=== PATIENT | female | born 1995 | race Caucasian/White ===

== ENCOUNTER 2025-01-03 00:55 | Emergency (ER) | payer MEDICAID, SELFPAY ==
[2025-01-03 00:57] VITALS: PULSE 105; RESP 18; O2SAT 98; BMI 30.2
--- NOTE | 2025-01-03 00:57 | PD.EDPSYCH ---
ED Psych RME/HPI General Chief Complaint: Psychiatric Symptoms Stated Complaint: MENTAL EVALUATION Time Seen by Provider: 01/03/25 01:15 Arrival date/time: 01/03/25 00:55 RME / HPI RME / HPI Narrative: DR. 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 Admits to alcohol consumption but denies drug ingestion. Reports grandfather 1 year ago today and is not coping well. Related Data Home Medications ?Medication ?Instructions ?Recorded ?Confirmed ibuprofen 200 mg tablet 1,000 mg PO QID PRN Pain 07/22/18 07/22/18 ondansetron HCl 8 mg tablet 8 mg PO TID PRN Nausea 07/22/18 07/22/18 (Zofran) Allergies Allergy/AdvReac Type Severity Reaction Status Date / Time No Known Allergies Allergy Verified 07/23/18 11:56 Review of Systems Review of Systems Systems Reviewed: All systems reviewed, normal except as documented Past Medical History Past Medical History NEUROLOGIC: Positive Migraine CARDIAC: Positive Hypertension (DURING PREGNACY AND OCCASSIONALLY. NO MEDS) RESPIRATORY: Positive Smoking and Tobacco Use GASTROINTESTINAL: Positive Gastrointestinal Disorders, Gall Bladder Disease (For this procedure) and Obesity REPRODUCTIVE: Positive Previous Pregnancies () MUSCULOSKELETAL: Positive Fibromyalgia (MOTHER) and Fractures (RIGHT WRIST) PSYCHO/SOCIAL: Positive Depression (XANAX IN THE PAST), Anxiety and Post Traumatic Stress Disorder Family History FAMILY HISTORY: Positive Family Psychiatric Problems (MOTHER) and Family Gastrointestinal Problems (MOTHER HAS IBS) Social History SMOKING STATUS: Current every day smoker SUBSTANCE USE: marijuana ED Exam Narrative Physical exam: Generally patient is alert in no obvious distress, extremities show multiple superficial abrasions and hesitation alberts to the right distal leg just above the ankle. No suturable wound., Heart regular rate and rhythm, lungs clear to auscultation equal bilaterally, abdomen soft bowel sounds present also nontender, skin is warm pale and dry, neurologic exam [place] Coma Scale is 15 without focal motor deficit and without ataxia Course Quality Measures none Orders Category Date Time Status Acetaminophen Stat Lab 01/03/25 01:24 Completed Alcohol, Blood Medical Stat Lab 01/03/25 01:24 Completed Beta HCG,Quantitative Stat Lab 01/03/25 01:24 Completed CBC Stat Lab 01/03/25 01:24 Completed CMP [Comprehensive Metabolic Panel] Stat Lab 01/03/25 01:24 Completed Drug Screen,Urine Stat Lab 01/03/25 01:16 Ordered Salicylate Stat Lab 01/03/25 01:24 Completed Potassium Chloride [K-Dur] Med 01/03/25 02:03 Once 60 meq PO X1 ONE Vital Signs Vital signs: Vital Signs Temperature 98.4 F 01/03/25 01:13 Pulse Rate 112 H 01/03/25 01:13 Respiratory Rate 17 01/03/25 01:13 Blood Pressure 134/78 H 01/03/25 01:13 Pulse Oximetry (%) 99 01/03/25 01:13 Psych MDM Narrative MDM Narrative:: Scribe Attestation: I, Becka Hess, am scribing for and in the presence of Dr. Becerra. Provider Notation: Although this document has been carefully reviewed, there may still be some phonetic and other typographical errors. These errors are purely grammatical due to imperfections in the software program and should not be construed in any way to compromise the substance of the patient's medical care during this visit. Patient's last tetanus shot is less than 5 years ago. I interpreted all labs. There was no significant abnormality. However the patient did have a slight low potassium at 3.2. Patient received potassium chloride 60 mill equivalents p.o. She is currently on a 5150 written by the police department. instructional media services technician consult will be obtained in the morning. Case to be signed out to Dr. Carlos. Patient data External records reviewed:: [facility] previous records (Reviewed prior ED records from 05/07/23. Patient was seen for Influenza B.) Clinical information provided by:: patient, EMS and law enforcement Social determinants that could affect healthcare access:: alcohol use (& Marijuana) Patient has the following chronic illnesses:: Migraine, Hypertension, Smoking and Tobacco Use, Gall Bladder Disease, Obesity, Fibromyalgia, Depression, Anxiety, Post Traumatic Stress Disorder How is presenting disease/condition affected by chronic disease/condition?: exacerbated by Evaluation data The following diagnostics were reviewed and interpreted by me:: lab results Lab and/or radiology exams considered but not ordered:: None Interpretation Summary: See MDM above Medications / Prescriptions Medications or Prescriptions considered but not ordered:: None Medication administrations:: Medication Administration History Potassium Chloride (Potassium Chloride 20 Meq Tabcr) 60 meq PO X1 ONE Stop: 01/03/25 02:04 See above if any Consultations Consultation(s) initiated? (list below): No Diagnosis Psych Differential Diagnosis: acute psychosis, suicidal ideation, bipolar disorder, depression, drug-induced psychotic disorder and acute anxiety Most likely diagnosis given after review of the tests above:: None Admission Indicated Admission indicated?: not indicated Explain why admission is indicated or not indicated:: Pending licensed master social worker consult in the morning Admission Request Was there a request for admission?: No Disposition Plan Disposition Plan: other (specify) (Signed out to oncoming ED physician at 6 AM.) Discharge Plan Prescriptions/Referrals Prescriptions/Med Rec: No Action ondansetron HCl [Zofran] 8 mg Tablet 8 mg PO TID PRN (Reason: Nausea) ibuprofen 200 mg Tablet 1,000 mg PO QID PRN (Reason: Pain) Problem List Clinical Impression: Suicidal ideation, Abrasion, Hypokalemia Patient/Caregiver Discharge Instructions Print Language: Central African
[2025-01-03 01:13] VITALS: BP 134/78; PULSE 112; RESP 17; TEMP 36.9; O2SAT 99
[2025-01-03 01:34] LABS: Basophils # (Auto) 0.1 Thou/mm3 (0.0-0.2); Basophils % (Auto) 1 % (0-2.5); Eosinophils # (Auto) 0.1 Thou/mm3 (0.0-0.5); Eosinophils % (Auto) 2 % (0-10); Hematocrit 35.9 % (36.0-46.0); Hemoglobin 12.3 g/dL (12.0-16.0); Immature Granulocytes Auto 0.02 Thou/mm3 (0.00-0.00); Lymphocytes # (Auto) 2.9 Thou/mm3 (1.0-4.8); Lymphocytes % (Auto) 37 % (10-50); Mean Corpuscular HGB Conc 34.3 g/dl (31.0-37.0); Mean Corpuscular Hemoglobin 31.1 pg (25.0-35.0); Mean Corpuscular Volume 91 fL (80-100); Monocytes # (Auto) 0.5 Thou/mm3 (0.0-0.8); Monocytes % (Auto) 6 % (0-12); Neutrophils # (Auto) 4.2 Thou/mm3 (1.8-7.7); Neutrophils % (Auto) 54 % (37-80); Nucleated Red Blood Cell # 0.00 Thou/mm3 (0.00-0.00); Nucleated Red Blood Cell % 0 /100 WBC (0); Platelet Count 230 Thou/mm3 (140-440); RDW Standard Deviation 39.7 fL (36.4-46.3); Red Blood Count 3.96 Miln/mm3 (4.00-5.20); White Blood Count 7.8 Thou/mm3 (3.6-11.0)
[2025-01-03 01:59] LABS: Acetaminophen < 2.0 mcg/mL (10.0-20.0); Alanine Aminotransferase 14 U/L (10-49); Albumin, Serum 4.9 gm/dL (3.5-5.0); Albumin/Globulin Ratio 2.6 (1.2-2.2); Alcohol, Blood Medical 51.7 mg/dL (0-10.0); Alkaline Phosphatase 65 U/L (46-116); Anion Gap 12 (7-16); Aspartate Amino Transferase 16 U/L (0-34); BUN/Creatinine Ratio 10 Ratio (12-20); Beta HCG,Quantitative 1 mIU/mL (<5.0); Bilirubin,Total 0.3 mg/dL (0.3-1.2); Blood Urea Nitrogen 8 mg/dL (9-23); Calcium 9.4 mg/dL (8.3-10.6); Calcium (Corrected) 9.4 mg/dL (8.5-10.1); Carbon Dioxide 23.1 mMol/L (20.0-31.0); Chloride 111 mMol/L (98-107); Creatinine (Component) 0.8 mg/dL (0.6-1.3); Estimated Creatinine Clearance 93.7 mL/min (>60); Globulin 1.9 gm/dL (2.3-3.5); Glucose 89 mg/dL (74-106); Osmolality,Calculated 287 (275-295); Potassium 3.2 mMol/L (3.4-5.1); Salicylate < 3.0 mg/dL; Sodium 146 mMol/L (136-145); Total Protein 6.8 gm/dL (5.7-8.2); eGFR > 60 See Note
[2025-01-03 03:41] LABS: Amphetamine/Methamp Scrn,U Negative (Negative); Barbiturate Screen,Urine Negative (Negative); Benzodiazepines Screen,Urine Negative (Negative); Benzoylecgonine Screen, Ur Negative (Negative); Fentanyl Screen,Urine Negative (Negative); Opiate Screen,Urine Negative (Negative); THC Screen,Urine Negative (Negative)
[2025-01-03 05:40] VITALS: BP 112/68; PULSE 84; RESP 18; TEMP 36.7; O2SAT 99
--- NOTE | 2025-01-03 06:41 | PD.EDADDENDU ---
Emergency Room Addendum Addendum Narrative: 0600: Care assumed from Dr. Claudio, the previous shift emergency physician. Past medical, surgical, social and family history reviewed. Vitals and home medications reviewed. I will assume the care of the patient at this time, pending mental health evaluation. Patient is medically cleared. Please refer to the emergency department record for history and examination from initial visit.? Physical exam by me shows patient under no acute distress at this time. 0835: Mental health evaluated her and patient denied any HI, SI, A/h, V/h or past suicide attempts. Patient was placed on a 5150 hold for danger to self by [place] [employer] earlier at arrival. But per mental health, patient does not meet criteria for 5150 hold and they rescinded the 5150 hold. Patient will be discharged to her stepfather's care and mother, safety plan in place. Patient was discharged with an abrasion, alcohol use, and self-harming behavior.
[2025-01-03 08:08] VITALS: BP 114/72; PULSE 77; RESP 16; TEMP 37.4; O2SAT 97
--- NOTE | 2025-01-03 08:49 | PC.CC ---
Electroencephalographic Technician, Stacie notified by Dr. Gutierrez that patient was medically clear for MHE. CC reviewed EMR, patient was placed on a 5150 hold for danger to self by [place] [employer] Officer, Dedra Cedeño, who reported that patient contacted for assistance due to self injuring her leg. CC met with patient [id number] to complete MHE. CC introduced herself, role in the agency, reason for visit, and discussed limits of confidentiality. Patient appeared alert and oriented to self, time, place, and situation. Patient appears stated age. Patient made good eye contact. Patient?s attitude appeared pleasant and cooperative. Patient?s behavior appeared ordinary. Patient?s mood appears ordinary. No signs of delusions or hallucinations. Patient reported that she resides at an apartment :address: [address] [place] [address], [place] [address]. Patient resides with her son, Jason (6y/o) who at the time of the incident was his father. Patient reported that she shares custody and her days are: Sunday, Sunday and Sunday. Patient reported that she works full-time at [employer]. Patient reported that she has been diagnosed with bipolar personality disorder, anxiety, PTSD. Patient reported that she stopped services through [facility] due to feeling like therapy and psychiatric services were not warranted. Patient reported that she felt lonely last night due to not having her child on a holiday, her boyfriend went out without her, her friends did not invite her to hangout; in addition, her grandfather a year ago. Patient reported that she was triggered, and unfortunately decided to engage in self-harming behavior. Patient reported that her actions were impulsive and thoughtless. Patient was only intended to feel pain, not kill herself. Throughout interview, patient denied any HI, SI, A/h or V/h; patient denied any previous suicide attempts. Patient reported that prior to last night, she had not engaged in self-harming behavior for the last 10-years. Patient denied ever being admitted to a psychiatric facility. At this time, patient's CSSRS was low-risk. Patient denied any HI, SI, A/h, V/h or past suicide attempts. Patient reported that she only called the crisis line to obtain assistance with getting her cuts cleaned. Patient reported that her intention was not be psychiatrically detained. CC staffed case with ELECTRICAL LINE MECHANIC-Stephenie Denton. Patient does not meet criteria for 5150 hold. CC rescinded 5150 hold and patient will be discharged to her stepfather's care, Abdifatah ([phone]) and mother, Purnima ([phone]). Patient provided with community resources for crisis line, [facility], and [facility]. CC updated Dr. Gutierrez and stage electrician helper-Gabriela.
== END 2025-01-03 08:34 | disposition home or self-care (01) ==
PROVIDERS: Emergency Provider Emergency Medicine
DX: R45.851 Suicidal ideations (principal); E87.6 Hypokalemia
CPT/HCPCS: 36415; 80053; 80307; 80320; 80329; 84702; 85025; 96127; 99283; A9270; G0480

== ENCOUNTER 2025-01-25 12:23 | Emergency (ER) | payer MEDICAID, SELFPAY ==
[2025-01-25 13:07] VITALS: BP 130/84; PULSE 77; RESP 18; TEMP 36.9; O2SAT 99; BMI 31.1
--- NOTE | 2025-01-25 13:17 | XR_ITS ---
Examination: Pelvic ultrasound, transabdominal, complete Technique: Transabdominal ultrasound of the pelvis performed using grayscale imaging Date and time of exam: January 25, 2025, 1402 hours INDICATIONS: Onset pelvic pain beginning this morning. FINDINGS: Uterus 7.7 cm endometrial stripe 1.0 cm Right ovary 2.6 cm arterial flow Left ovary 3.5 cm arterial flow 19 x 15 mm cyst IMPRESSION: No uterine mass or intrauterine gestation Left ovarian simple cyst 19 x 13 x 15 mm
--- NOTE | 2025-01-25 13:18 | PD.EDRME ---
Rapid Medical Screening Exam E Arrival date/time: 01/25/25 12:23 This is a 30-year-old female that comes into the emergency room with complaints of generalized lower pelvic pain. Patient states it feels like the same pain she had when she had an ovarian cyst. Patient denies any urinary symptoms. Patient states that the pain woke her up out of her sleep. Patient denies fever, nausea, vomiting, diarrhea. Patient has a history of depression, chronic hypertension, migraines and anxiety. I have greeted and performed a focused initial assessment of this patient. Initial appropriate labs ordered at this time. A comprehensive ED assessment and evaluation of the patient and analysis of all test and completion of medical decision making process will be conducted by additional ED provider. Chief Complaint: General Adult/Misc Complain Time Seen by Provider: 01/25/25 13:05 Vital signs: Vital Signs Temperature 98.4 F 01/25/25 13:07 Pulse Rate 77 01/25/25 13:07 Respiratory Rate 18 01/25/25 13:07 Blood Pressure 130/84 01/25/25 13:07 Pulse Oximetry (%) 99 01/25/25 13:07 Oxygen Delivery Method Room Air 01/25/25 13:07 Exam: alert and oriented, breathing even and unlabored Clinical Impression: Abdominal pain
[2025-01-25 13:35] LABS: Basophils # (Auto) 0.0 Thou/mm3 (0.0-0.2); Basophils % (Auto) 0 % (0-2.5); Eosinophils # (Auto) 0.1 Thou/mm3 (0.0-0.5); Eosinophils % (Auto) 1 % (0-10); Hematocrit 39.2 % (36.0-46.0); Hemoglobin 13.4 g/dL (12.0-16.0); Immature Granulocytes Auto 0.03 Thou/mm3 (0.00-0.00); Lymphocytes # (Auto) 2.5 Thou/mm3 (1.0-4.8); Lymphocytes % (Auto) 22 % (10-50); Mean Corpuscular HGB Conc 34.2 g/dl (31.0-37.0); Mean Corpuscular Hemoglobin 30.7 pg (25.0-35.0); Mean Corpuscular Volume 90 fL (80-100); Monocytes # (Auto) 0.6 Thou/mm3 (0.0-0.8); Monocytes % (Auto) 5 % (0-12); Neutrophils # (Auto) 8.4 Thou/mm3 (1.8-7.7); Neutrophils % (Auto) 72 % (37-80); Nucleated Red Blood Cell # 0.00 Thou/mm3 (0.00-0.00); Nucleated Red Blood Cell % 0 /100 WBC (0); Platelet Count 249 Thou/mm3 (140-440); RDW Standard Deviation 40.2 fL (36.4-46.3); Red Blood Count 4.36 Miln/mm3 (4.00-5.20); White Blood Count 11.7 Thou/mm3 (3.6-11.0)
[2025-01-25 13:53] LABS: Alanine Aminotransferase 12 U/L (10-49); Albumin, Serum 5.4 gm/dL (3.5-5.0); Albumin/Globulin Ratio 2.3 (1.2-2.2); Alkaline Phosphatase 69 U/L (46-116); Anion Gap 9 (7-16); Aspartate Amino Transferase 16 U/L (0-34); BUN/Creatinine Ratio 6 Ratio (12-20); Bilirubin,Total 0.4 mg/dL (0.3-1.2); Blood Urea Nitrogen < 5 mg/dL (9-23); Calcium 9.8 mg/dL (8.3-10.6); Calcium (Corrected) 9.8 mg/dL (8.5-10.1); Carbon Dioxide 25.1 mMol/L (20.0-31.0); Chloride 108 mMol/L (98-107); Creatinine (Component) 0.8 mg/dL (0.6-1.3); Estimated Creatinine Clearance 94.3 mL/min (>60); Globulin 2.4 gm/dL (2.3-3.5); Glucose 101 mg/dL (74-106); Lipase 51 U/L (12-53); Osmolality,Calculated 280 (275-295); Potassium 3.8 mMol/L (3.4-5.1); Sodium 142 mMol/L (136-145); Total Protein 7.8 gm/dL (5.7-8.2); eGFR > 60 See Note
[2025-01-25 14:27] LABS: Collection Type, Urine Voided
[2025-01-25 14:37] LABS: HCG Qualitative,Urine Negative
[2025-01-25 14:42] LABS: Bilirubin,Urine Negative (Negative); Blood,Urine Negative (Negative); Clarity,Urine Clear (Clear/Hazy); Color,Urine Colorless (Lt Yel-Yel); Culture Indicated,Urine Not Indicated; Glucose, Urine Negative (Negative); Ketones,Urine Negative (Negative); Leukocyte Esterase,Urine Positive (Negative); Nitrite,Urine Negative (Negative); PH,Urine 6.0 (5.0-7.0); Protein,Urine Negative (Neg - Trace); RBC,Urine 1 /hpf (0-3); Specific Gravity,Urine 1.005 (1.001-1.035); Squamous Epithelial Cell,Urine 6 /hpf (0-5); Urobilinogen,Urine Negative mg/dL (0.0-1.0); WBC,Urine 6 /hpf (0-5)
[2025-01-25 14:55] LABS: Amphetamine/Methamp Scrn,U Negative (Negative); Barbiturate Screen,Urine Negative (Negative); Benzodiazepines Screen,Urine Negative (Negative); Benzoylecgonine Screen, Ur Negative (Negative); Fentanyl Screen,Urine Negative (Negative); Opiate Screen,Urine Negative (Negative); THC Screen,Urine Negative (Negative)
--- NOTE | 2025-01-25 20:03 | PD.EDADULT ---
ED General RME/HPI General Chief complaint: General Adult/Misc Complain Stated complaint: PAIN FROM R) OVARIAN CYST Time Seen by Provider: 01/25/25 13:05 Arrival date/time: 01/25/25 12:23 RME / HPI RME / HPI narrative: 01/25/25 12:23 This is a 30-year-old female that comes into the emergency room with complaints of generalized lower pelvic pain. Patient states it feels like the same pain she had when she had an ovarian cyst. Patient denies any urinary symptoms. Patient states that the pain woke her up out of her sleep. Patient denies fever, nausea, vomiting, diarrhea. Patient has a history of depression, chronic hypertension, migraines and anxiety. I have greeted and performed a focused initial assessment of this patient. Initial appropriate labs ordered at this time. A comprehensive ED assessment and evaluation of the patient and analysis of all test and completion of medical decision making process will be conducted by additional ED provider. Dr. Claudio?s Main ED Evaluation: 30yo female presents to the ED for a chief complaint of generalized pelvic pain. No radiation of pain to her back. Patient denies any N/V, fever, chills, or any other associated symptoms. Patient endorses having similar symptoms in the past, reporting she has a history of ovarian cysts. Related Data Home Medications ?Medication ?Instructions ?Recorded ?Confirmed ibuprofen 200 mg tablet 1,000 mg PO QID PRN Pain 07/22/18 07/22/18 ondansetron HCl 8 mg tablet 8 mg PO TID PRN Nausea 07/22/18 07/22/18 (Zofran) Previous Rx's ?Medication ?Instructions ?Recorded ibuprofen 800 mg tablet 800 mg PO Q8H PRN pain #30 tabs 01/25/25 Allergies Allergy/AdvReac Type Severity Reaction Status Date / Time adhesive tape Allergy Intermediate BOILS Verified 01/25/25 12:27 latex Allergy Mild ITCHY Verified 01/25/25 12:27 TEGEDERM Allergy Severe BOILS Uncoded 01/25/25 12:27 Review of Systems Review of Systems Systems Reviewed: All systems reviewed, normal except as documented Past Medical History Past Medical History NEUROLOGIC: Positive Neurological Disorders and Migraine; Negative Seizures CARDIAC: Positive Cardiac Disorders and Hypertension; Negative Congestive Heart Failure RESPIRATORY: Positive Smoking and Tobacco Use; Negative Chronic Obstructive Pulmonary Disease (COPD) GASTROINTESTINAL: Positive Gastrointestinal Disorders, Gall Bladder Disease and Obesity; Negative Hepatitis, Colorectal Cancer or Irritable Bowel GENITOURINARY: Negative Genitourinary Disorders, Renal Disease or Prostate Cancer REPRODUCTIVE: Positive Previous Pregnancies; Negative Breast Cancer, Endometriosis (UNDIAGNOSED. STATES HAS HEAVY, PAINFUL MENSES), Pelvic Inflammatory Disease, Testicular Cancer or Uterine Prolapse MUSCULOSKELETAL: Positive Musculoskeletal Disorders, Arthritis, Fibromyalgia and Fractures; Negative Bone Cancer ENDOCRINE: Negative Endocrine Disorders, Diabetes Mellitus Type 1, Diabetes Mellitus Type 2 or Hypothyroidism HEMATOLOGIC: Negative Blood Disorders, Anemia or Clotting Problems PSYCHO/SOCIAL: Positive Depression, Anxiety and Post Traumatic Stress Disorder OTHER HISTORY: Negative Hospitalization, Autoimmune Disease, Down Syndrome, Developmental Delay, Shingles, Falls, Blood Transfusions, Blood Transfusion Reaction, Anesthesia Reactions, Organ Transplant, Chemotherapy, Radiation Therapy, Hyperbaric Therapy, MRSA, VRSA, Vancomycin-Resistant Enterococci, Human Immunodeficiency Virus (HIV), Chicken Pox, Measles, Mumps, Rubella (Setswana Measles), Pertussis, Clostridium Difficile, Breast Cancer, Cervical Cancer, Colorectal Cancer, Lung Cancer, Ovarian Cancer, Prostate Cancer or Testicular Cancer Family History FAMILY HISTORY: Positive Family Psychiatric Problems and Family Gastrointestinal Problems; Negative Family Respiratory Disorders, Family Cardiac Disorders, Family Cancer, Family Surgery or Family Anesthesia Reaction Surgical History SURGICAL: Positive Nose Surgery (SEPTOPLASTY); Negative Section or Organ Transplant Social History SMOKING STATUS: Current every day smoker SUBSTANCE USE: marijuana ED Exam Narrative Physical exam: Generally patient is alert in no obvious distress, heart regular rate and rhythm, lungs show to auscultation equal bilaterally, abdomen soft bowel sounds present's and nontender, external pelvic exam showed the patient had minimal tenderness bilaterally to bilateral adnexa. He was no rebound tenderness., Skin is warm and dry, neurologic exam shows Tammy Coma Scale of 15 Course Quality Measures none Orders Category Date Time Status US pelvic complete Stat Exams 01/25/25 13:17 Completed CBC Stat Lab 01/25/25 13:27 Completed Comprehensive Metabolic Panel Stat Lab 01/25/25 13:27 Completed Drug Screen,Urine Stat Lab 01/25/25 13:35 Completed HCG Qualitative,Urine Stat Lab 01/25/25 13:35 Completed Lipase Stat Lab 01/25/25 13:27 Completed Urinalysis, C/S if Indicated Stat Lab 01/25/25 13:35 Completed Vital Signs Vital signs: Vital Signs Temperature 98.4 F 01/25/25 13:07 Pulse Rate 77 01/25/25 13:07 Respiratory Rate 18 01/25/25 13:07 Blood Pressure 130/84 01/25/25 13:07 Pulse Oximetry (%) 99 01/25/25 13:07 Oxygen Delivery Method Room Air 01/25/25 13:07 Discharge Plan Plan Patient Disposition: HOME (Self Care) Prescriptions/Referrals Prescriptions/Med Rec: New ibuprofen 800 mg tablet 800 mg PO Q8H PRN (Reason: pain) Qty: 30 0RF No Action ondansetron HCl [Zofran] 8 mg Tablet 8 mg PO TID PRN (Reason: Nausea) ibuprofen 200 mg Tablet 1,000 mg PO QID PRN (Reason: Pain) Referrals: Norm Lowe MD [Primary Care Provider, Family Practice] - In 1 week Problem List Clinical Impression: Ovarian cyst Patient/Caregiver Discharge Instructions Education Materials: ED Ovarian Cyst Additional Instructions: Ibuprofen as prescribed. Follow-up with your doctor as needed for further treatment and evaluation. Print Language: Italian Stand Alone Forms: Mae Award Info., Patient Portal Info Letter MDM Narrative MDM hospital course (for use when minimal MDM required): Scribe Attestation: 01/25/25 - Otilio, Hali Lowe am scribing for and in the presence of Dr. Claudio. I interpreted all labs. is negative. Urine is not infected. There is no leukocytosis of significance. Pelvic ultrasound shows approximately 2 cm left ovarian cyst. No evidence for torsion. Patient will be given a prescription for ibuprofen to be taken as prescribed. Follow-up with her doctor as needed for further treatment and evaluation. Clinical Information Provided by: patient Medical Records reviewed [facility] (Per chart review, patient was seen here on 01/03/25 for abrasion.) Meds/Rx considered, not ordered None Labs/Rad/Tests considered, not ordered None Chronic Illness/Social Conditions Explain: Hx HTN Labs Labs: interpreted by me Imaging Imaging interpretation: interpreted by me Imaging Interpretation(s): [facility] Report Signed Patient: DONNY PETERSEN. Record#: [id number] Birthdate: 1995 Age/Sex: 30 / F Location: [facility] Attending Dr: Ordering Physician: Kenya,Christina INSULATION WORKER FURNACE INSTALLER Date of Service: 01/25/25 Procedure(s): US pelvic complete Accession Number(s): [id number] cc: Norm Lowe MD; Brandyn Garcia MD; Christina Zambrano NP~ Examination: Pelvic ultrasound, transabdominal, complete Technique: Transabdominal ultrasound of the pelvis performed using grayscale imaging Date and time of exam: January 25, 2025, 1402 hours INDICATIONS: Onset pelvic pain beginning this morning. FINDINGS: Uterus 7.7 cm endometrial stripe 1.0 cm Right ovary 2.6 cm arterial flow Left ovary 3.5 cm arterial flow 19 x 15 mm cyst IMPRESSION: No uterine mass or intrauterine gestation Left ovarian simple cyst 19 x 13 x 15 mm Dictated By: Brandyn Garcia MD Signed By: <Electronically signed by Brandyn Garcia MD in [place]> 01/25/25 1738 Medication Administration(s) none Diagnosis Differential Diagnosis ED Complaint MDM: See MDM
== END 2025-01-25 21:06 | disposition home or self-care (01) ==
PROVIDERS: Nurse Practitioner Family; Emergency Provider Emergency Medicine; PCP Family Medicine
DX: N83.292 Other ovarian cyst, left side (principal); I10 Essential (primary) hypertension
CPT/HCPCS: 36415; 76856; 80053; 80307; 81001; 81025; 83690; 85025; 99283